=== PATIENT | female | born 1960 | race Caucasian/White ===

== ENCOUNTER 2021-01-08 13:20 | Emergency (ER) | payer BC ==
[2021-01-08] MEDS ORDERED: ACETAMINOPHEN-CODEINE 300/30MG TAB ONE (13:38)
[2021-01-08] MEDS ORDERED: ALBUTEROL INHALER 90MCG/INH IH ONE (13:38)
[2021-01-08] MEDS ORDERED: SODIUM CHLORIDE 0.9% 1000ML 1,000 ML IV ONE (13:39)
[2021-01-08 13:56] LABS: APPEARANCE,URINE Turbid (CLEAR); BILIRUBIN,URINE Small (NEGATIVE); COLOR,URINE Dark Yellow (YELLOW); GLUCOSE, URINE (UA) TRACE mg/dL (NEGATIVE); KETONES,URINE 15 mg/dL (NEGATIVE); LEUKOCYTE ESTERASE ,URINE Negative (NEGATIVE); NITRATE,URINE Negative (NEGATIVE); OCCULT BLOOD,URINE Negative (NEGATIVE); PROTEIN,URINE POS 2+ mg/dL (NEGATIVE)
[2021-01-08 14:06] LABS: RAPID GROUP A STREP NEGATIVE (NEGATIVE)
[2021-01-08 14:07] LABS: BASOPHILS % (AUTO) 0.6 % (0.0-5.0); EOSINOPHILS % (AUTO) 2.1 % (0.0-8.0); HEMATOCRIT 35.1 % (36-48); LYMPHOCYTES % (AUTO) 9.9 % (21.0-51.0); MEAN CORPUSCULAR HEMOGLOBIN 29.9 pg (27.0-33.0); MEAN CORPUSCULAR HGB CONC 33.6 g/dL (32.0-36.0); MEAN CORPUSCULAR VOLUME 89.1 fL (79-99); MONOCYTES % (AUTO) 7.7 % (3.0-13.0); NEUTROPHILS % (AUTO) 79.4 % (40.0-77.0); PLATELET COUNT (AUTO) 234 K/uL (130-400); RED BLOOD CELL COUNT(AUTO) 3.94 MIL/uL (4.00-5.50); RED CELL DISTRIBUTION WIDTH 13.2 % (11.0-15.5); WHITE BLOOD COUNT (AUTO) 7.2 K/uL (4.8-10.8)
[2021-01-08 14:21] LABS: INR 1.14 (0.85-1.15); PROTHROMBIN TIME 12.3 SEC (9.6-11.6)
[2021-01-08 14:23] LABS: BACTERIA,URINE Few /HPF (None Seen); FINE GRANULAR CASTS,URINE 0-2 /LPF (None Seen); MUCUS,URINE Many LPF (None Seen); RBC,URINE None Seen /HPF (0-1); SQUAMOUS EPITHELIAL CELL,UR 0-2 /HPF (0-2); WBC,URINE None Seen /HPF (0-1)
[2021-01-08 14:29] LABS: CREATININE 1.2 mg/dL (0.5-1.5); POTASSIUM 3.6 mmol/L (3.5-5.1)
[2021-01-08 14:42] LABS: ALBUMIN 3.8 g/dL (3.5-5.0); BILIRUBIN,TOTAL 0.4 mg/dL (0.2-1.0); TOTAL PROTEIN, SERUM 7.5 g/dL (6.0-8.3)
[2021-01-08 14:44] LABS: B-TYPE NATRIURETIC PEPTIDE 25 pg/mL (0-100)
== END 2021-01-08 15:22 | disposition home or self-care (01) ==
LOC: EDH 13:20
DX: J40 Bronchitis, not specified as acute or chronic (principal); J02.9 Acute pharyngitis, unspecified; Z20.822 Contact with and (suspected) exposure to COVID-19; E11.9 Type 2 diabetes mellitus without complications; E03.9 Hypothyroidism, unspecified; E78.00 Pure hypercholesterolemia, unspecified; Z90.710 Acquired absence of both cervix and uterus; Z87.891 Personal history of nicotine dependence
CPT/HCPCS: 36415; 71045; 80053; 81001; 82550; 83880; 84145; 84484; 85025; 85610; 85730; 87040 ×2; 87426; 87804 ×2; 87880; 93005; 96360; 99285; J7030; U0003

== ENCOUNTER 2021-01-18 16:28 | Inpatient (IN) | payer BC ==
[~2021-01-18] VITALS: Ht 165.1 cm; Wt 98.0 kg
[2021-01-18 17:31] LABS: BASOPHILS % (AUTO) 0.6 % (0.0-5.0); EOSINOPHILS % (AUTO) 0.7 % (0.0-8.0); HEMATOCRIT 31.7 % (36-48); LYMPHOCYTES % (AUTO) 11.1 % (21.0-51.0); MEAN CORPUSCULAR HEMOGLOBIN 28.9 pg (27.0-33.0); MEAN CORPUSCULAR HGB CONC 33.4 g/dL (32.0-36.0); MEAN CORPUSCULAR VOLUME 86.4 fL (79-99); MONOCYTES % (AUTO) 3.7 % (3.0-13.0); NEUTROPHILS % (AUTO) 82.1 % (40.0-77.0); PLATELET COUNT (AUTO) 173 K/uL (130-400); RED BLOOD CELL COUNT(AUTO) 3.67 MIL/uL (4.00-5.50); RED CELL DISTRIBUTION WIDTH 13.8 % (11.0-15.5); WHITE BLOOD COUNT (AUTO) 13.7 K/uL (4.8-10.8)
[2021-01-18] MEDS ORDERED: ASPIRIN 325 MG TABLET ONE (17:40)
[2021-01-18 17:41] LABS: PROTHROMBIN TIME 10.9 SEC (9.6-11.6)
[2021-01-18 17:42] LABS: PARTIAL THROMBOPLASTIN TIME 21.1 SEC (26.3-35.5)
[2021-01-18 17:52] LABS: APPEARANCE,URINE Clear (CLEAR); BILIRUBIN,URINE Negative (NEGATIVE); COLOR,URINE Yellow (YELLOW); GLUCOSE, URINE (UA) Negative (NEGATIVE); KETONES,URINE Negative (NEGATIVE); LEUKOCYTE ESTERASE ,URINE Negative (NEGATIVE); NITRATE,URINE Negative (NEGATIVE); OCCULT BLOOD,URINE Negative (NEGATIVE); PROTEIN,URINE Negative (NEGATIVE); UROBILINOGEN,URINE 0.2 mg/dL (0.2-1.0)
[2021-01-18 17:53] LABS: ALBUMIN 2.3 g/dL (3.5-5.0); BILIRUBIN,TOTAL 0.5 mg/dL (0.2-1.0); CREATININE 3.6 mg/dL (0.5-1.5); TOTAL PROTEIN, SERUM 6.5 g/dL (6.0-8.3)
[2021-01-18 17:55] LABS: B-TYPE NATRIURETIC PEPTIDE 22 pg/mL (0-100)
[2021-01-18 22:25] VITALS: BP 109/64
[2021-01-19] MEDS ORDERED: ACETAMINOPHEN 325 MG TAB PO PRN (00:15)
[2021-01-19] MEDS ORDERED: GUAIFENESIN-DM 200/20 MG 10 ML PO PRN (00:15)
[2021-01-19] MEDS ORDERED: LACTULOSE 20 GM/30 ML UDCUP PO PRN (00:15)
[2021-01-19] MEDS ORDERED: NITROGLYCERIN 0.4 MG SL TAB SL PRN (00:15)
[2021-01-19] MEDS ORDERED: 0.9%NACL 1000ML 1,000 ML IV SCH (00:15)
[2021-01-19] MEDS ORDERED: UBID100C10 PO (00:44)
[2021-01-19] MEDS ORDERED: FISH1CAP50 PO (00:44)
[2021-01-19] MEDS ORDERED: SIMV80TA91 PO (00:44)
[2021-01-19] MEDS ORDERED: POTA-79 PO (00:44)
[2021-01-19] MEDS ORDERED: CLOB30CR5 TP (00:44)
[2021-01-19] MEDS ORDERED: METF-444 PO (00:44)
[2021-01-19] MEDS ORDERED: humira PO (00:44)
[2021-01-19] MEDS ORDERED: aspirin PO (00:44)
[2021-01-19] MEDS ORDERED: folic acid PO (00:44)
[2021-01-19] MEDS ORDERED: CHLO25TA3 PO (00:44)
[2021-01-19] MEDS ORDERED: INSU500I SQ (00:44)
[2021-01-19] MEDS ORDERED: LOSA100T2 PO (00:44)
[2021-01-19] MEDS ORDERED: HUMULIN R PERC (00:44)
[2021-01-19] MEDS ORDERED: BACL10TA PO (00:44)
[2021-01-19] MEDS ORDERED: CHLORPHENIRAMINE (00:44)
[2021-01-19] MEDS ORDERED: CHLORTRIMETON (00:44)
[2021-01-19] MEDS ORDERED: TOFA5TAB PO (00:44)
[2021-01-19] MEDS ORDERED: vitamin d (00:44)
[2021-01-19] MEDS ORDERED: MAGN400T51 PO (00:44)
[2021-01-19] MEDS ORDERED: flonase NASAL (00:44)
[2021-01-19] MEDS: AZITHROMYCIN 500MG+NS 250ML 250 ML IV SCH ×2 (01:15→23:29)
[2021-01-19] MEDS: SOLU-MEDROL 125MG VIAL IV SCH ×2 (01:15→11:27)
[2021-01-19] MEDS: CEFTRIAXONE 1G VIAL IV SCH ×2 (01:15→23:29)
[2021-01-19 02:11] LABS: AMPHET/METH SCREEN,URINE NEGATIVE (NEGATIVE); BARBITURATE SCREEN, URINE NEGATIVE (NEGATIVE); BENZODIAZEPINES SCREEN,URINE NEGATIVE (NEGATIVE); CANNABINOID SCREEN,URINE NEGATIVE (NEGATIVE); COCAINE SCREEN,URINE NEGATIVE (NEGATIVE); OPIATE SCREEN,URINE NEGATIVE (NEGATIVE); PHENCYCLIDINE SCREEN,URINE NEGATIVE (NEGATIVE)
[2021-01-19] MEDS ORDERED: KCL 20 MEQ ERTAB PO SCH (02:30)
[2021-01-19 04:02] VITALS: BP 117/69
[2021-01-19 05:40] LABS: HEMOGLOBIN A1C 9.4 % (4.0-6.0)
[2021-01-19 05:42] LABS: HEMATOCRIT 29.8 % (36-48); MEAN CORPUSCULAR HEMOGLOBIN 28.9 pg (27.0-33.0); MEAN CORPUSCULAR HGB CONC 33.9 g/dL (32.0-36.0); MEAN CORPUSCULAR VOLUME 85.4 fL (79-99); PLATELET COUNT (AUTO) 174 K/uL (130-400); RED BLOOD CELL COUNT(AUTO) 3.49 MIL/uL (4.00-5.50); RED CELL DISTRIBUTION WIDTH 13.8 % (11.0-15.5); WHITE BLOOD COUNT (AUTO) 14.6 K/uL (4.8-10.8)
[2021-01-19 06:04] LABS: BAND NEUTROPHILS % (MANUAL) 2 % (0-2); LYMPHOCYTES % (MANUAL) 8 % (22-44); MAN.DIFF COMMENT-IMPRESSION MANUAL DIFFERENTIAL; MONOCYTES % (MANUAL) 1 % (2-9); SEGMENTED NEUTROPHILS % 89 % (40-70)
[2021-01-19 06:05] LABS: PLATELET MORPHOLOGY COMMENT SLIGHTLY DECREASED
[2021-01-19 06:17] LABS: ALANINE AMINOTRANSFERASE 156 U/L (12-78); ALBUMIN 2.1 g/dL (3.5-5.0); ASPARTATE AMINOTRANSFERASE 165 U/L (10-37); BILIRUBIN,TOTAL 0.5 mg/dL (0.2-1.0); CARBON DIOXIDE 28 mmol/L (21-32); CHLORIDE 100 mmol/L (101-111); CREATININE 2.9 mg/dL (0.5-1.5); GLOMERULAR FILTR. RATE CALC 17 mL/min (>60); GLUCOSE,RANDOM 109 mg/dL (70-105); POTASSIUM 3.5 mmol/L (3.5-5.1); SODIUM SERUM 136 mmol/L (136-145); THYROID STIMULATING HORMONE 0.49 uIU/mL (0.36-3.74)
[2021-01-19 06:21] LABS: UREA NITROGEN, BLOOD 92 mg/dL (7-18)
[2021-01-19] MEDS: ALBUTEROL 0.083% 2.5 MG/3 ML INH IH SCH ×3 (06:47→18:55)
[2021-01-19 07:30] VITALS: BP 116/64
[2021-01-19] MEDS ORDERED: LOSARTAN 100 MG TABLET PO SCH (09:00)
[2021-01-19] MEDS ORDERED: FAMOTIDINE 20MG VIAL IV SCH (09:00)
[2021-01-19] MEDS ORDERED: FAMOTIDINE 20MG TAB ONE (09:54)
[2021-01-19 11:00] VITALS: BP 89/42
[2021-01-19] MEDS: FLUTICASONE/VILANTEROL 1 EACH AER.POW.BA IH SCH (11:25)
[2021-01-19] MEDS: FAMOTIDINE 20MG TAB PO SCH (11:26)
[2021-01-19] MEDS: Vitamin B Complex/Vit C/Folic Acid PO SCH (11:26)
[2021-01-19] MEDS: BENZONATATE 100 MG CAPSULE PO SCH ×3 (11:26→21:56)
[2021-01-19] MEDS: ASPIRIN 81MG CHEW TAB PO SCH (11:26)
[2021-01-19] MEDS: ENOXAPARIN SODIUM 30 MG/0.3 ML SQ SCH (11:52)
[2021-01-19 15:56] VITALS: BP 85/49
[2021-01-19] MEDS ORDERED: DEXTROSE 50%-WATER 50 ML DISP.SYRIN IV PRN ×2 (16:00→18:00)
[2021-01-19] MEDS ORDERED: GLUCAGON 1MG KIT 1 MG ML IM PRN ×2 (16:00→18:00)
[2021-01-19] MEDS ORDERED: MAGNESIUM 2GM PREMIX 50ML 50 ML IV PRN (16:00)
[2021-01-19] MEDS: INSULIN HUMULIN R 100 UNIT/ML 3ML SQ SCH ×2 (18:05→21:58)
[2021-01-19 20:00] VITALS: BP 100/49
[2021-01-19] MEDS ORDERED: SIMVASTATIN 10 MG TABLET PO SCH (21:00)
[2021-01-19] MEDS: SIMVASTATIN 20 MG TABLET PO SCH (21:56)
[2021-01-19] MEDS: INSULIN GLARGINE 100 UNITS/ML 10 ML VIAL SQ SCH (22:30)
[2021-01-19] MEDS: ACETAMINOPHEN 325 MG TAB PO PRN (23:29)
[2021-01-20] VITALS (7 sets, daily range): BP systolic 95–115; BP diastolic 41–68
[2021-01-20] MEDS: ALBUTEROL 0.083% 2.5 MG/3 ML INH IH SCH ×5 (00:31→23:34)
[2021-01-20 04:49] LABS: HEMATOCRIT 29.6 % (36-48); MEAN CORPUSCULAR HEMOGLOBIN 28.7 pg (27.0-33.0); MEAN CORPUSCULAR HGB CONC 32.4 g/dL (32.0-36.0); MEAN CORPUSCULAR VOLUME 88.6 fL (79-99); RED BLOOD CELL COUNT(AUTO) 3.34 MIL/uL (4.00-5.50)
[2021-01-20 05:05] LABS: ALBUMIN 2.1 g/dL (3.5-5.0); CREATININE 2.8 mg/dL (0.5-1.5); MAGNESIUM 2.5 mg/dL (1.80-2.40); PHOSPHORUS 4.5 mg/dL (2.5-4.9); POTASSIUM 3.9 mmol/L (3.5-5.1)
[2021-01-20] MEDS: INSULIN HUMULIN R 100 UNIT/ML 3ML SQ SCH ×6 (06:37→21:36)
[2021-01-20] MEDS: BENZONATATE 100 MG CAPSULE PO SCH ×3 (08:35→21:20)
[2021-01-20] MEDS: FISH OIL 1000 MG/CAP PO SCH (08:35)
[2021-01-20] MEDS: ASPIRIN 81MG CHEW TAB PO SCH (08:36)
[2021-01-20] MEDS: FAMOTIDINE 20MG TAB PO SCH (08:37)
[2021-01-20] MEDS: Vitamin B Complex/Vit C/Folic Acid PO SCH (08:37)
[2021-01-20] MEDS: ENOXAPARIN SODIUM 30 MG/0.3 ML SQ SCH (08:38)
[2021-01-20] MEDS: FLUTICASONE/VILANTEROL 1 EACH AER.POW.BA IH SCH (08:42)
[2021-01-20] MEDS ORDERED: DEXAMETHASONE 4 MG TAB PO SCH (09:00)
[2021-01-20] MEDS: 0.9%NACL 1000ML 1,000 ML IV SCH ×2 (09:47→20:50)
[2021-01-20] MEDS: MONTELUKAST SODIUM 10 MG TAB PO SCH (11:41)
[2021-01-20] MEDS: GUAIFENESIN 600 MG TABLET.ER PO SCH ×2 (11:41→21:20)
[2021-01-20] MEDS: SIMVASTATIN 20 MG TABLET PO SCH (21:21)
[2021-01-20] MEDS: INSULIN GLARGINE 100 UNITS/ML 10 ML VIAL SQ SCH (21:35)
[2021-01-20] MEDS ORDERED: SODIUM CHLORIDE 3% FOR INHALATION 4 ML/AMP VIAL.NEB IH ONE (23:51)
[2021-01-21] MEDS: AZITHROMYCIN 500MG+NS 250ML 250 ML IV SCH (00:55)
[2021-01-21] MEDS: CEFTRIAXONE 1G VIAL IV SCH (00:55)
[2021-01-21 03:23] VITALS: BP 102/61
[2021-01-21] MEDS: ACETAMINOPHEN 325 MG TAB PO PRN (03:45)
[2021-01-21 05:23] LABS: HEMATOCRIT 26.3 % (36-48); MEAN CORPUSCULAR HGB CONC 31.9 g/dL (32.0-36.0); MEAN CORPUSCULAR VOLUME 87.7 fL (79-99); RED CELL DISTRIBUTION WIDTH 14.2 % (11.0-15.5); WHITE BLOOD COUNT (AUTO) 12.3 K/uL (4.8-10.8)
[2021-01-21 05:37] LABS: CREATININE 2.2 mg/dL (0.5-1.5); MAGNESIUM 2.1 mg/dL (1.80-2.40); POTASSIUM 3.5 mmol/L (3.5-5.1)
[2021-01-21] MEDS: 0.9%NACL 1000ML 1,000 ML IV SCH ×2 (06:53→10:32)
[2021-01-21] MEDS: ALBUTEROL 0.083% 2.5 MG/3 ML INH IH SCH ×4 (06:56→23:42)
[2021-01-21] MEDS: INSULIN HUMULIN R 100 UNIT/ML 3ML SQ SCH ×7 (07:00→21:29)
[2021-01-21 07:40] VITALS: BP 116/61
[2021-01-21] MEDS: GUAIFENESIN 600 MG TABLET.ER PO SCH ×2 (08:20→21:19)
[2021-01-21] MEDS: BENZONATATE 100 MG CAPSULE PO SCH ×3 (08:21→21:19)
[2021-01-21] MEDS: Vitamin B Complex/Vit C/Folic Acid PO SCH (08:21)
[2021-01-21] MEDS: FAMOTIDINE 20MG TAB PO SCH (08:21)
[2021-01-21] MEDS: ASPIRIN 81MG CHEW TAB PO SCH (08:21)
[2021-01-21] MEDS: MONTELUKAST SODIUM 10 MG TAB PO SCH (08:21)
[2021-01-21] MEDS: FISH OIL 1000 MG/CAP PO SCH (08:21)
[2021-01-21] MEDS: ENOXAPARIN SODIUM 30 MG/0.3 ML SQ SCH (08:22)
[2021-01-21] MEDS: FLUTICASONE/VILANTEROL 1 EACH AER.POW.BA IH SCH (08:24)
[2021-01-21 11:29] VITALS: BP 115/56
[2021-01-21] MEDS: CEFUROXIME SODIUM 1.5 GM VIAL IVP SCH (15:26)
[2021-01-21 16:48] VITALS: BP 151/64
[2021-01-21 19:54] VITALS: BP 123/55
[2021-01-21] MEDS: SIMVASTATIN 20 MG TABLET PO SCH (21:19)
[2021-01-21] MEDS: INSULIN GLARGINE 100 UNITS/ML 10 ML VIAL SQ SCH (21:28)
[2021-01-21 23:54] VITALS: BP 118/56
[2021-01-22] MEDS: CEFUROXIME SODIUM 1.5 GM VIAL IVP SCH ×2 (02:42→14:17)
[2021-01-22 04:55] VITALS: BP 112/46
[2021-01-22 05:08] LABS: HEMATOCRIT 30.4 % (36-48); MEAN CORPUSCULAR HGB CONC 31.9 g/dL (32.0-36.0); RED BLOOD CELL COUNT(AUTO) 3.34 MIL/uL (4.00-5.50); RED CELL DISTRIBUTION WIDTH 14.6 % (11.0-15.5); WHITE BLOOD COUNT (AUTO) 8.4 K/uL (4.8-10.8)
[2021-01-22 05:21] LABS: CREATININE 1.8 mg/dL (0.5-1.5); POTASSIUM 4.1 mmol/L (3.5-5.1)
[2021-01-22] MEDS: ALBUTEROL 0.083% 2.5 MG/3 ML INH IH SCH ×3 (06:18→19:05)
[2021-01-22] MEDS: INSULIN HUMULIN R 100 UNIT/ML 3ML SQ SCH ×7 (06:48→21:26)
[2021-01-22 08:11] VITALS: BP 133/48
[2021-01-22] MEDS: Vitamin B Complex/Vit C/Folic Acid PO SCH (08:37)
[2021-01-22] MEDS: BENZONATATE 100 MG CAPSULE PO SCH ×3 (08:37→21:15)
[2021-01-22] MEDS: GUAIFENESIN 600 MG TABLET.ER PO SCH ×2 (08:37→21:15)
[2021-01-22] MEDS: FISH OIL 1000 MG/CAP PO SCH (08:37)
[2021-01-22] MEDS: FAMOTIDINE 20MG TAB PO SCH (08:37)
[2021-01-22] MEDS: MONTELUKAST SODIUM 10 MG TAB PO SCH (08:37)
[2021-01-22] MEDS: ASPIRIN 81MG CHEW TAB PO SCH (08:38)
[2021-01-22] MEDS: ENOXAPARIN SODIUM 30 MG/0.3 ML SQ SCH (08:38)
[2021-01-22] MEDS: FLUTICASONE/VILANTEROL 1 EACH AER.POW.BA IH SCH (08:40)
[2021-01-22 11:29] VITALS: BP 104/65
[2021-01-22 16:28] VITALS: BP 122/58
[2021-01-22 20:36] VITALS: BP 136/72
[2021-01-22] MEDS: SIMVASTATIN 20 MG TABLET PO SCH (21:15)
[2021-01-22] MEDS: INSULIN GLARGINE 100 UNITS/ML 10 ML VIAL SQ SCH (21:25)
[2021-01-23 01:38] VITALS: BP 133/57
[2021-01-23 04:16] LABS: HEMATOCRIT 27.7 % (36-48); MEAN CORPUSCULAR HGB CONC 32.1 g/dL (32.0-36.0); MEAN CORPUSCULAR VOLUME 90.2 fL (79-99); RED BLOOD CELL COUNT(AUTO) 3.07 MIL/uL (4.00-5.50); RED CELL DISTRIBUTION WIDTH 14.4 % (11.0-15.5); WHITE BLOOD COUNT (AUTO) 9.4 K/uL (4.8-10.8)
[2021-01-23 04:27] LABS: CREATININE 1.4 mg/dL (0.5-1.5)
[2021-01-23] MEDS: CEFUROXIME SODIUM 1.5 GM VIAL IVP SCH (04:30)
[2021-01-23 04:56] VITALS: BP 154/75
[2021-01-23] MEDS: ALBUTEROL 0.083% 2.5 MG/3 ML INH IH SCH ×2 (06:40)
[2021-01-23] MEDS: INSULIN HUMULIN R 100 UNIT/ML 3ML SQ SCH ×2 (06:47→06:48)
[2021-01-23] MEDS ORDERED: LEVO750T46 PO (07:28)
[2021-01-23 07:30] VITALS: BP 138/63
== END 2021-01-23 10:15 | disposition home or self-care (01) | DRG 682 ==
LOC: EDH 16:28 → EDHIP 20:33 → OBSVTOIN 20:33 → 3CH 22:09
PROVIDERS: ADMIT Internal Medicine; ATTEND Internal Medicine
DX: N17.9 Acute kidney failure, unspecified (principal); J15.6 Pneumonia due to other Gram-negative bacteria; M62.82 Rhabdomyolysis; J98.11 Atelectasis; R74.8 Abnormal levels of other serum enzymes; E03.9 Hypothyroidism, unspecified; E78.00 Pure hypercholesterolemia, unspecified; E86.0 Dehydration; Z96.41 Presence of insulin pump (external) (internal); E66.01 Morbid (severe) obesity due to excess calories; Z20.822 Contact with and (suspected) exposure to COVID-19; D64.9 Anemia, unspecified; E11.65 Type 2 diabetes mellitus with hyperglycemia; E78.5 Hyperlipidemia, unspecified; K76.0 Fatty (change of) liver, not elsewhere classified; G47.33 Obstructive sleep apnea (adult) (pediatric); J40 Bronchitis, not specified as acute or chronic; E87.6 Hypokalemia; I10 Essential (primary) hypertension; L40.50 Arthropathic psoriasis, unspecified; M19.90 Unspecified osteoarthritis, unspecified site; Z79.4 Long term (current) use of insulin; Z68.35 Body mass index [BMI] 35.0-35.9, adult; Z82.49 Family history of ischemic heart disease and other diseases of the circulatory system; Z90.710 Acquired absence of both cervix and uterus; Z79.899 Other long term (current) drug therapy
CPT/HCPCS: 36415; 71045; 71250; 74176; 76700; 76770; 80048; 80053; 80069; 80305; 81003; 82140; 82550; 82607; 82746; 82947; 82948; 83036; 83735; 83880; 84145; 84443; 84484; 85025; 85027; 85610; 85651; 85730; 86038; 86140; 86215; 86235; 86431; 86738; 87040; 87071; 87205; 87426; 87804; 93005; 93306; 93356; 94640; 94664; G0378; J0456; J0696; J0697; J1650; J1815; J2930; J7030; J8540; U0003

== ENCOUNTER → 2022-04-13 | Outpatient (CLI) | payer BC, OTHER ==
[~2022-04-13] MED LIST: BACL10TA PO; CHLO25TA3 PO; CHLORPHENIRAMINE; CHLORTRIMETON; CLOB30CR5 TP; FISH1CAP50 PO; HUMULIN R PERC; INSU500I SQ; LEVO750T46 PO; LOSA100T2 PO; MAGN400T51 PO; METF-444 PO; POTA-79 PO; SIMV80TA91 PO; TOFA5TAB PO; UBID100C10 PO; aspirin PO; flonase NASAL; folic acid PO; humira PO; vitamin d
== END | disposition home or self-care (01) ==
LOC: RAH 13:32
PROVIDERS: ATTEND Family Medicine
DX: Z12.31 Encounter for screening mammogram for malignant neoplasm of breast (principal)
CPT/HCPCS: 77067

== ENCOUNTER 2023-08-15 11:28 | Emergency (ER) | payer MEDICARE ==
[~2023-08-15 11:28] MED LIST changes: -LEVO750T46 PO; +LEVO750T68 PO; +LOSA-420 PO; -LOSA100T2 PO; +POTA-364 PO; -POTA-79 PO
[2023-08-15] MEDS ORDERED: PRED5TAB PO (14:51)
[2023-08-15] MEDS ORDERED: LORA10TA7 PO (14:51)
== END 2023-08-15 15:09 | disposition home or self-care (01) ==
LOC: EDH 11:28
DX: T78.40XA Allergy, unspecified, initial encounter (principal); E86.0 Dehydration; Z79.622 Long term (current) use of Janus kinase inhibitor; Z79.84 Long term (current) use of oral hypoglycemic drugs; Z79.899 Other long term (current) drug therapy; X58.XXXA Exposure to other specified factors, initial encounter
CPT/HCPCS: 70450; 70551; 93005